=== PATIENT | female | born 1985 | race Caucasian/White ===

== ENCOUNTER 2017-06-12 17:35 | Inpatient (IN) | payer OTHER ==
[2017-06-12 17:56] VITALS: BMI 28.3
--- NOTE | 2017-06-12 20:24 | HP ---
COWS - Scale Resting Pulse: 1= [place] 81-100 Sweatin= Chills/Flushing Restless Observation: 3= Extraneous Movement Pupil Size: 0= Normal to Room Light Bone or Joint Aches: 2= Severe Diffuse Aches Runny Nose/ Eye Tearin= Runny Nose/Eyes GI Upset > 30mins: 2= Nausea/Diarrhea Tremor Observation: 2= Slight Tremor Visible Yawning Observation: 0= None Anxiety or Irritability: 2=Irritable/Anxious Goose Flesh Skin: 0=Smooth Skin COWS Score: 15 Admission ROS S - [facility] Chief Complaint: withdrawal sx Allergies/Adverse Reactions: Allergies Allergy/AdvReac Type Severity Reaction Status Date / Time Sulfa (Sulfonamide Allergy Mild Rash Verified 06/12/17 19:25 Antibiotics) History of Present Illness: 32 years old female with long history of oxy nicotine marijuana dependence has ovarian cysts, endometriosis, separate right shoulder, and depression anxiety is admitted to detox Exam Limitations: No Limitations - Ebola screening Have you traveled outside of the country in the last 21 days: No (N) Have you had contact with anyone from an Ebola affected area: No Have you been sick,other than usual withdrawal symptoms: No Do you have a fever: No - Review of Systems Constitutional: Changes in sleep, Weight Stable EENT: reports: No Symptoms Reported Respiratory: reports: No Symptoms reported Cardiac: reports: No Symptoms Reported GI: reports: Nausea, Poor Fluid Intake, Abdominal cramping : reports: No Symptoms Reported Musculoskeletal: reports: Back Pain, Joint Pain, Muscle Pain, Neck Pain Integumentary: reports: No Symptoms Reported Neuro: reports: Seizure (last episode 2011), Tremors Endocrine: reports: No Symptoms Reported Hematology: reports: No Symptoms Reported Psychiatric: reports: Judgement Intact, Orientated x3, Anxious, Depressed Other Systems: Reviewed and Negative Patient History - Patient Medical History Hx Anemia: No Hx Asthma: No Hx Chronic Obstructive Pulmonary Disease (COPD): No Hx Cancer: No Hx Cardiac Disorders: No Hx Congestive Heart Failure: No Hx Hypertension: No Hx Hypercholesterolemia: No Hx Pacemaker: No HX Cerebrovascular Accident: No Hx Seizures: No Hx Dementia: No Hx Diabetes: No Hx Gastrointestinal Disorders: Yes (IBS,hiatal hernia,hemorrhoids) Hx Liver Disease: No Hx Genitourinary Disorders: No Hx Sexually Transmitted Disorders: No Hx Renal Disease (ESRD): No Hx Thyroid Disease: No Hx Human Immunodeficiency Virus (HIV): No Hx Hepatitis C: No Hx Depression: Yes Hx Suicide Attempt: No Hx Bipolar Disorder: No Hx Schizophrenia: No - Patient Surgical History Past Surgical History: Yes Hx Neurologic Surgery: No Hx Cataract Extraction: No Hx Cardiac Surgery: No Hx Lung Surgery: No Hx Breast Surgery: No Hx Breast Biopsy: No Hx Abdominal Surgery: No Hx Appendectomy: No Hx Cholecystectomy: No Hx Genitourinary Surgery: No Hx Section: No Hx Orthopedic Surgery: No Hx Hysterectomy: No Other Surgical History: ENDOMETRIOSISx2 + ovarian cysts removedx2 02/2016 Anesthesia Reaction: No - PPD History Previous Implant?: Yes Documented Results: Negative w/proof Implanted On Prior R Admission?: Yes Date: 05/07/12 PPD to be Administered?: Yes - Reproductive History Patient is a Female of Child Bearing Age (11 -55 yrs old): Yes Last Menstrual Period: 05/22/17 Patient : No - Smoking Cessation Smoking history: Current every day smoker Have you smoked in the past 12 months: Yes Aproximately how many cigarettes per day: 20 If you are a former smoker, when did you quit?: Cigars Per Day: 0 Hx Chewing Tobacco Use: No Initiated information on smoking cessation: Yes 'Breaking Loose' booklet given: 06/12/17 - Substance & Tx. History Hx Alcohol Use: No Hx Substance Use: Yes Substance Use Type: Marijuana, Opiates Hx Substance Use Treatment: No - Substances Abused Oxycontin Route: Oral Frequency: Daily Amount used: 180mg Age of first use: 32 Date of Last Use: 06/12/17 Marijuana/Hashish Route: Smoking Frequency: Daily Amount used: 7 blunts Age of first use: 17 Date of Last Use: 06/12/17 Family Disease History - Family Disease History Family Disease History: Diabetes: Grandparent, [place]: Father, Respiratory: Mother Admission Physical Exam BHS - Vital Signs Vital Signs: Vital Signs - 24 hr 06/12/17 17:45 Temperature 97.9 F Pulse Rate 93 H Respiratory 18 Rate Blood Pressure 142/80 - Physical General Appearance: Yes: Appropriately Dressed, Mild Distress, Obese, Tremorous , Irritable, Sweating, Anxious HEENTM: Yes: Hearing grossly Normal, Normal ENT Inspection, Normocephalic, Normal Voice Respiratory: Yes: Chest Non-Tender, Lungs Clear, Normal Breath Sounds, No Respiratory Distress, No Accessory Muscle Use Neck: Yes: Supple, Trachea in good position Breast: Yes: Breasts Symetrical Cardiology: Yes: Regular Rhythm, S1, S2, Tachycardia Abdominal: Yes: Non Tender, Soft, Increased Bowel Sounds Genitourinary: Yes: Within Normal Limits Back: Yes: Normal Inspection Musculoskeletal: Yes: full range of Motion, Gait Steady, Back pain, Muscle Pain Extremities: Yes: Normal Inspection, Normal Range of Motion, Non-Tender, Tremors Neurological: Yes: Fully Oriented, Alert, Motor Strength 5/5, Normal Response, Depressed Affect Integumentary: Yes: Warm Lymphatic: Yes: Within Normal Limits - Diagnostic (1) Opioid dependence with withdrawal Current Visit: Yes Status: Acute (2) Nicotine dependence Current Visit: Yes Status: Acute Qualifiers: Nicotine product type: cigarettes Substance use status: in withdrawal Qualified Code(s): F17.213 - Nicotine dependence, cigarettes, with withdrawal (3) Anxious depression Current Visit: Yes Status: Suspected (4) Endometriosis Current Visit: Yes Status: Resolved (5) Ovarian cyst Current Visit: Yes Status: Resolved Qualifiers: Laterality: bilateral Qualified Code(s): N83.201 - Unspecified ovarian cyst, right side; N83.202 - Unspecified ovarian cyst, left side Cleared for Admission [facility] - Detox or Rehab [facility] Level of Care: Medically Managed Detox Regimen/Protocol: Methadone [facility] Breath Alcohol Content Breath Alcohol Content: 0 Urine Pregancy Test - Result Urine Test Results: Negative- NO Line Present Urine Drug Screen - Results Drug Screen Negative: No Urine Drug Screen Results: THC-Marijuana, OXY-Oxycodone
[2017-06-12] MEDS ORDERED: MAG HYDROX/AL HYDROX/SIMETH 30 ML UNIT-DOSE CUP PO PRN (20:27)
[2017-06-12] MEDS ORDERED: LOPERAMIDE HCL 2 MG CAPSULE PO PRN (20:27)
[2017-06-12] MEDS ORDERED: METHADONE HCL 10 MG TABLET (FOR DETOX USE ONLY) PO ONE ×2 (20:27→23:00)
[2017-06-12] MEDS ORDERED: ACETAMINOPHEN 325 MG TABLET (FP) PO PRN (20:27)
[2017-06-12] MEDS ORDERED: MAGNESIUM HYDROX 2400MG/30ML ORAL SUSPENSION 30 ML CUP PO PRN (20:27)
[2017-06-12] MEDS ORDERED: NICOTINE POLACRILEX 4 MG GUM BUC PRN (20:27)
[2017-06-12] MEDS ORDERED: MAGNESIUM CITRATE 300 ML BOTTLE PO PRN (20:27)
[2017-06-12] MEDS ORDERED: IBUPROFEN 400 MG TABLET (FP) PO PRN (20:27)
[2017-06-12] MEDS ORDERED: guaiFENesin/D-METHORPHAN HB 10 ML UNIT-DOSE CUPS PO PRN (20:27)
[2017-06-12] MEDS ORDERED: P-EPHED 60MG/TRIPROLIDI 2.5MG TABLET PO PRN (20:27)
[2017-06-12] MEDS ORDERED: diphenhydrAMINE HCL 50 MG CAPSULE PO PRN (20:27)
[2017-06-12] MEDS ORDERED: MENTHOL/PHENOL 1 EACH UD MM PRN (20:27)
[2017-06-12] MEDS: diazePAM 5 MG TABLET PO PRN (21:06)
[2017-06-12 21:55] LABS: URINE APPEARANCE CLEAR; URINE BILIRUBIN NEGATIVE (NEGATIVE); URINE BLOOD NEGATIVE (NEGATIVE); URINE COLOR LT. YELLOW; URINE GLUCOSE (UA) NEGATIVE (NEGATIVE); URINE KETONE NEGATIVE (NEGATIVE); URINE LEUK ESTERASE NEGATIVE (NEGATIVE); URINE NITRITE NEGATIVE (NEGATIVE); URINE PROTEIN NEGATIVE (NEGATIVE); URINE UROBILINOGEN 0.2 mg/dL (0.2-1.0)
[2017-06-12] MEDS: THIAMINE HCL 100 MG TABLET (FP) PO SCH (22:17)
[2017-06-13] MEDS: diazePAM 5 MG TABLET PO PRN ×5 (01:13→22:02)
--- NOTE | 2017-06-13 09:50 | EKG ---
Test Reason : Blood Pressure : / mmHG Vent. Rate : 083 BPM Atrial Rate : 083 BPM P-R Int : 142 ms QRS Dur : 086 ms QT Int : 382 ms P-R-T Axes : 056 064 056 degrees QTc Int : 448 ms NORMAL SINUS RHYTHM NORMAL ECG Confirmed by MD ENE, LB (2012) on 06/13/2017 9:49:44 AM Referred By: Confirmed By:LB LUQUE MD
[2017-06-13] MEDS ORDERED: METHADONE HCL 10 MG TABLET (FOR DETOX USE ONLY) PO ONE (10:00)
[2017-06-13] MEDS: PRENATAL VITAMINS W/ FOLIC ACID TABLET (FP) PO SCH (10:15)
[2017-06-13] MEDS: NICOTINE 21 MG/24 HOURS TOPICAL PATCH TD SCH (10:19)
[2017-06-13 10:35] LABS: MCH 31.6 pg (25.7-33.7); MEAN CELL VOLUME 93.2 fl (80-96); MEAN PLT VOLUME 9.2 fl (7.5-11.1); PLATELET COUNT 289 K/MM3 (134-434); RDW 13.2 % (11.6-15.6)
[2017-06-13 11:24] LABS: ALBUMIN 3.5 g/dl (3.4-5.0); ANION GAP 5 (8-16); BILIRUBIN,TOTAL 0.4 mg/dL (0.2-1.0); CO2 28 mmol/L (21-32); GLUCOSE,RANDOM 84 mg/dL (74-106); SGOT/AST 10 U/L (15-37); TOT PROT 6.2 g/dl (6.4-8.2)
[2017-06-13 11:32] LABS: ALK PHOS 50 U/L (45-117); CALCIUM 9.4 mg/dL (8.5-10.1); CREATININE 0.6 mg/dL (0.55-1.02); SGPT/ALT 17 U/L (12-78)
--- NOTE | 2017-06-13 12:17 | PN ---
BHS COWS - Scale Resting Pulse: 0= [place] 80 or Below Sweatin= Chills/Flushing Restless Observation: 3= Extraneous Movement Pupil Size: 1= Pupils >than Normal Bone or Joint Aches: 2= Severe Diffuse Aches Runny Nose/ Eye Tearin= Runny Nose/Eyes GI Upset > 30mins: 3= Vomiting/Diarrhea Tremor Observation of Outstretched Hands: 2= Slight Tremor Visible Yawning Observation: 1= 1-2x During Session Anxiety or Irritability: 2=Irritable/Anxious Goose Flesh Skin: 0=Smooth Skin COWS Score: 17 BHS Progress Note (SOAP) Subjective: alert,irritable,anxious,interrupted sleep,tremor,pain in the body and back Objective: 06/13/17 12:15 Vital Signs Temperature 98.4 F 06/13/17 10:54 Pulse Rate 62 06/13/17 10:54 Respiratory Rate 18 06/13/17 10:54 Blood Pressure 110/69 06/13/17 10:54 O2 Sat by Pulse Oximetry (%) ekg nsr,normal ecg Laboratory Last Values WBC 11.0 K/mm3 (4.0-10.0) H D 06/13/17 08:00 RBC 4.30 M/mm3 (3.60-5.2) 06/13/17 08:00 Hgb 13.6 GM/dL (10.7-15.3) 06/13/17 08:00 Hct 40.1 % (32.4-45.2) 06/13/17 08:00 MCV 93.2 fl (80-96) 06/13/17 08:00 MCH 31.6 pg (25.7-33.7) 06/13/17 08:00 MCHC 34.0 g/dl (32.0-36.0) 06/13/17 08:00 RDW 13.2 % (11.6-15.6) 06/13/17 08:00 Plt Count 289 K/MM3 (134-434) 06/13/17 08:00 MPV 9.2 fl (7.5-11.1) 06/13/17 08:00 Sodium 140 mmol/L (136-145) 06/13/17 08:00 Potassium 4.5 mmol/L (3.5-5.1) 06/13/17 08:00 Chloride 107 mmol/L (98-107) 06/13/17 08:00 Carbon Dioxide 28 mmol/L (21-32) 06/13/17 08:00 Anion Gap 5 (8-16) L 06/13/17 08:00 BUN 14 mg/dL (7-18) 06/13/17 08:00 Creatinine 0.6 mg/dL (0.55-1.02) 06/13/17 08:00 Creat Clearance w eGFR > 60 (>60) 06/13/17 08:00 Random Glucose 84 mg/dL (74-106) D 06/13/17 08:00 Calcium 9.4 mg/dL (8.5-10.1) 06/13/17 08:00 Total Bilirubin 0.4 mg/dL (0.2-1.0) D 06/13/17 08:00 AST 10 U/L (15-37) L 06/13/17 08:00 ALT 17 U/L (12-78) 06/13/17 08:00 Alkaline Phosphatase 50 U/L (45-117) 06/13/17 08:00 Total Protein 6.2 g/dl (6.4-8.2) L 06/13/17 08:00 Albumin 3.5 g/dl (3.4-5.0) 06/13/17 08:00 Urine Color Lt. yellow 06/12/17 21:46 Urine Appearance Clear 06/12/17 21:46 Urine pH 5.0 (5.0-8.0) 06/12/17 21:46 Ur Specific [place] >= 1.030 (1.005-1.025) H 06/12/17 21:46 Urine Protein Negative (NEGATIVE) 06/12/17 21:46 Urine Glucose (UA) Negative (NEGATIVE) 06/12/17 21:46 Urine Ketones Negative (NEGATIVE) 06/12/17 21:46 Urine Blood Negative (NEGATIVE) 06/12/17 21:46 Urine Nitrite Negative (NEGATIVE) 06/12/17 21:46 Urine Bilirubin Negative (NEGATIVE) 06/12/17 21:46 Urine Urobilinogen 0.2 mg/dL (0.2-1.0) 06/12/17 21:46 Assessment: 06/13/17 12:16 withdrawal symptom Plan: contue detox,encourage oral fluid
[2017-06-13 12:45] LABS: HIV 1 & 2 AB NEGATIVE; HIV 1 AGp24 NEGATIVE
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
[2017-06-13] MEDS ORDERED: PATIENT'S OWN MEDICATION (NON-FORMULARY) (Escitalopram Oxalate [Lexapro -] 5 MG) PO SCH (15:15)
[2017-06-13] MEDS: ESCITALOPRAM OXALATE 10 MG TABLET (FP) PO SCH (17:46)
[2017-06-13] MEDS: ZOLPIDEM TARTRATE 5 MG TABLET PO PRN (22:01)
[2017-06-13] MEDS: THIAMINE HCL 100 MG TABLET (FP) PO SCH (22:01)
--- NOTE | 2017-06-14 08:53 | PN ---
S COWS - Scale Resting Pulse: 0= [place] 80 or Below Sweatin= Chills/Flushing Restless Observation: 3= Extraneous Movement Pupil Size: 1= Pupils >than Normal Bone or Joint Aches: 2= Severe Diffuse Aches Runny Nose/ Eye Tearin= Runny Nose/Eyes GI Upset > 30mins: 2= Nausea/Diarrhea Tremor Observation of Outstretched Hands: 2= Slight Tremor Visible Yawning Observation: 1= 1-2x During Session Anxiety or Irritability: 2=Irritable/Anxious Goose Flesh Skin: 0=Smooth Skin COWS Score: 16 S Progress Note (SOAP) Subjective: ALERT,IRRITABLE,ANXIOUS,INTERRUPTED SLEEP,TREMOR,PAIN IN THE BODY AND BACK Objective: 06/14/17 08:52 Vital Signs Temperature 96.1 F L 06/14/17 06:00 Pulse Rate 60 06/14/17 06:00 Respiratory Rate 18 06/14/17 06:00 Blood Pressure 95/56 06/14/17 06:00 O2 Sat by Pulse Oximetry (%) Laboratory Last Values WBC 11.0 K/mm3 (4.0-10.0) H D 06/13/17 08:00 RBC 4.30 M/mm3 (3.60-5.2) 06/13/17 08:00 Hgb 13.6 GM/dL (10.7-15.3) 06/13/17 08:00 Hct 40.1 % (32.4-45.2) 06/13/17 08:00 MCV 93.2 fl (80-96) 06/13/17 08:00 MCH 31.6 pg (25.7-33.7) 06/13/17 08:00 MCHC 34.0 g/dl (32.0-36.0) 06/13/17 08:00 RDW 13.2 % (11.6-15.6) 06/13/17 08:00 Plt Count 289 K/MM3 (134-434) 06/13/17 08:00 MPV 9.2 fl (7.5-11.1) 06/13/17 08:00 Sodium 140 mmol/L (136-145) 06/13/17 08:00 Potassium 4.5 mmol/L (3.5-5.1) 06/13/17 08:00 Chloride 107 mmol/L (98-107) 06/13/17 08:00 Carbon Dioxide 28 mmol/L (21-32) 06/13/17 08:00 Anion Gap 5 (8-16) L 06/13/17 08:00 BUN 14 mg/dL (7-18) 06/13/17 08:00 Creatinine 0.6 mg/dL (0.55-1.02) 06/13/17 08:00 Creat Clearance w eGFR > 60 (>60) 06/13/17 08:00 Random Glucose 84 mg/dL (74-106) D 06/13/17 08:00 Calcium 9.4 mg/dL (8.5-10.1) 06/13/17 08:00 Total Bilirubin 0.4 mg/dL (0.2-1.0) D 06/13/17 08:00 AST 10 U/L (15-37) L 06/13/17 08:00 ALT 17 U/L (12-78) 06/13/17 08:00 Alkaline Phosphatase 50 U/L (45-117) 06/13/17 08:00 Total Protein 6.2 g/dl (6.4-8.2) L 06/13/17 08:00 Albumin 3.5 g/dl (3.4-5.0) 06/13/17 08:00 Urine Color Lt. yellow 06/12/17 21:46 Urine Appearance Clear 06/12/17 21:46 Urine pH 5.0 (5.0-8.0) 06/12/17 21:46 Ur Specific [place] >= 1.030 (1.005-1.025) H 06/12/17 21:46 Urine Protein Negative (NEGATIVE) 06/12/17 21:46 Urine Glucose (UA) Negative (NEGATIVE) 06/12/17 21:46 Urine Ketones Negative (NEGATIVE) 06/12/17 21:46 Urine Blood Negative (NEGATIVE) 06/12/17 21:46 Urine Nitrite Negative (NEGATIVE) 06/12/17 21:46 Urine Bilirubin Negative (NEGATIVE) 06/12/17 21:46 Urine Urobilinogen 0.2 mg/dL (0.2-1.0) 06/12/17 21:46 RPR Titer Nonreactive (NONREACTIVE) 06/13/17 08:00 Hepatitis C Antibody <0.1 s/co ratio (0.0-0.9) 06/13/17 08:00 HIV 1&2 Antibody Screen Negative 06/13/17 08:00 HIV P24 Antigen Negative 06/13/17 08:00 Assessment: 06/14/17 08:52 WITHDRAWAL SYMPTOM Plan: CONTINUE DETOX
[2017-06-14] MEDS ORDERED: METHADONE HCL 5 MG TABLET (FOR DETOX USE ONLY) PO ONE (10:00)
[2017-06-14] MEDS: PRENATAL VITAMINS W/ FOLIC ACID TABLET (FP) PO SCH (10:13)
[2017-06-14] MEDS: ESCITALOPRAM OXALATE 10 MG TABLET (FP) PO SCH (10:13)
[2017-06-14] MEDS: NICOTINE 21 MG/24 HOURS TOPICAL PATCH TD SCH (10:14)
[2017-06-14] MEDS: diazePAM 5 MG TABLET PO PRN ×4 (10:16→22:15)
[2017-06-14] MEDS: CYCLOBENZAPRINE HCL 10 MG TABLET (FP) PO PRN (12:21)
[2017-06-14] MEDS: IBUPROFEN 600 MG TABLET (FP) PO PRN ×2 (12:21→18:18)
[2017-06-14] MEDS: ZOLPIDEM TARTRATE 5 MG TABLET PO PRN (22:16)
[2017-06-14] MEDS: THIAMINE HCL 100 MG TABLET (FP) PO SCH (22:17)
[2017-06-15] MEDS: diazePAM 5 MG TABLET PO PRN ×4 (05:59→21:12)
[2017-06-15] MEDS: IBUPROFEN 600 MG TABLET (FP) PO PRN ×2 (05:59→14:19)
--- NOTE | 2017-06-15 09:42 | PN ---
BHS Progress Note (SOAP) Subjective: ALERT,IRRITABLE,ANXIOUS,INTERRUPTED SLEEP,PAIN IN THE BODY AND BACK Objective: 06/15/17 09:41 Vital Signs Temperature 97.9 F 06/15/17 06:33 Pulse Rate 68 06/15/17 06:33 Respiratory Rate 18 06/15/17 06:33 Blood Pressure 108/55 06/15/17 06:33 O2 Sat by Pulse Oximetry (%) Assessment: 06/15/17 09:41 WITHDRAWAL SYMPTOM Plan: CONTINUE DETOX
[2017-06-15] MEDS ORDERED: METHADONE HCL 5 MG TABLET (FOR DETOX USE ONLY) PO ONE (10:00)
[2017-06-15] MEDS: PRENATAL VITAMINS W/ FOLIC ACID TABLET (FP) PO SCH (10:09)
[2017-06-15] MEDS: ESCITALOPRAM OXALATE 10 MG TABLET (FP) PO SCH (10:09)
[2017-06-15] MEDS: NICOTINE 21 MG/24 HOURS TOPICAL PATCH TD SCH (10:10)
[2017-06-15] MEDS: CYCLOBENZAPRINE HCL 10 MG TABLET (FP) PO PRN ×2 (10:11→22:10)
[2017-06-15] MEDS ORDERED: cloNIDine HCL 0.1 MG TABLET PO ONE (22:00)
[2017-06-15] MEDS: ZOLPIDEM TARTRATE 5 MG TABLET PO PRN (22:10)
[2017-06-15] MEDS: THIAMINE HCL 100 MG TABLET (FP) PO SCH (22:55)
--- NOTE | 2017-06-16 09:40 | PN ---
BHS Progress Note (SOAP) Subjective: nausea, sweats, interrupted sleep, anxiety, tremors Objective: 06/16/17 09:39 Vital Signs - 8 hr 06/16/17 06/16/17 03:30 06:37 Temperature 98.1 F Pulse Rate 65 Respiratory 18 18 Rate Blood Pressure 101/50 Laboratory Tests 06/12/17 06/13/17 06/13/17 21:46 08:00 08:00 WBC RBC Hgb Hct MCV MCH MCHC RDW Plt Count MPV Sodium Potassium Chloride Carbon Dioxide Anion Gap BUN Creatinine Creat Clearance w eGFR Random Glucose Calcium Total Bilirubin AST ALT Alkaline Phosphatase Total Protein Albumin Urine Color Lt. yellow Urine Appearance Clear Urine pH 5.0 Ur Specific [place] >= 1.030 H Urine Protein Negative Urine Glucose (UA) Negative Urine Ketones Negative Urine Blood Negative Urine Nitrite Negative Urine Bilirubin Negative Urine Urobilinogen 0.2 RPR Titer Hepatitis C Antibody <0.1 HIV 1&2 Antibody Screen Negative HIV P24 Antigen Negative 06/13/17 06/13/17 06/13/17 08:00 08:00 08:00 WBC 11.0 H D RBC 4.30 Hgb 13.6 Hct 40.1 MCV 93.2 MCH 31.6 MCHC 34.0 RDW 13.2 Plt Count 289 MPV 9.2 Sodium 140 Potassium 4.5 Chloride 107 Carbon Dioxide 28 Anion Gap 5 L BUN 14 Creatinine 0.6 Creat Clearance w eGFR > 60 Random Glucose 84 D Calcium 9.4 Total Bilirubin 0.4 D AST 10 L ALT 17 Alkaline Phosphatase 50 Total Protein 6.2 L Albumin 3.5 Urine Color Urine Appearance Urine pH Ur Specific [place] Urine Protein Urine Glucose (UA) Urine Ketones Urine Blood Urine Nitrite Urine Bilirubin Urine Urobilinogen RPR Titer Nonreactive Hepatitis C Antibody HIV 1&2 Antibody Screen HIV P24 Antigen Assessment: 06/16/17 09:39 withdrawal sx Plan: cont detox, fluids, symptomatic relief, pain medications to treat PID/ endometriosis, shoulder pain
[2017-06-16] MEDS ORDERED: METHADONE HCL 10 MG TABLET (FOR DETOX USE ONLY) PO ONE (10:00)
[2017-06-16] MEDS ORDERED: NAPROXEN 500 MG TABLET (FP) PO SCH (10:00)
[2017-06-16] MEDS: ESCITALOPRAM OXALATE 10 MG TABLET (FP) PO SCH (10:21)
[2017-06-16] MEDS: PRENATAL VITAMINS W/ FOLIC ACID TABLET (FP) PO SCH (10:22)
[2017-06-16] MEDS: NICOTINE 21 MG/24 HOURS TOPICAL PATCH TD SCH (10:22)
[2017-06-16] MEDS: PANTOPRAZOLE 40 MG TABLET (FP) PO SCH (10:25)
[2017-06-16] MEDS: hydrOXYzine PAMOATE 50 MG CAPSULE (FP) PO PRN ×2 (10:27→14:51)
[2017-06-16] MEDS: CYCLOBENZAPRINE HCL 10 MG TABLET (FP) PO PRN (10:27)
[2017-06-16] MEDS: cloNIDine HCL 0.1 MG TABLET PO SCH ×2 (11:20→22:17)
[2017-06-16] MEDS ORDERED: LIDOCAINE 5% TOPICAL PATCH TP ONE (12:29)
[2017-06-16] MEDS: IBUPROFEN 400 MG TABLET (FP) PO PRN (12:58)
[2017-06-16] MEDS: GABAPENTIN 100 MG CAPSULE (FP) PO SCH ×2 (13:36→22:14)
[2017-06-16] MEDS ORDERED: LIDOCAINE PATCH REMOVAL MC SCH (22:00)
[2017-06-16] MEDS: ZOLPIDEM TARTRATE 5 MG TABLET PO PRN (22:14)
[2017-06-16] MEDS: THIAMINE HCL 100 MG TABLET (FP) PO SCH (22:15)
[2017-06-17] MEDS: GABAPENTIN 100 MG CAPSULE (FP) PO SCH (05:32)
[2017-06-17] MEDS ORDERED: METHADONE HCL 5 MG TABLET (FOR DETOX USE ONLY) PO ONE (06:00)
[2017-06-17 06:15] VITALS: PULSE 70
--- NOTE | 2017-06-17 08:08 | DS ---
[facility] Detox Discharge Summary Admission Date: 06/12/17 Discharge Date: 06/17/17 - History Present History: Opioid Dependence Additional Comments: FOLLLOW UP WITH AFTER [facility] PROGRAM ARRANGEMENT Pertinent Past History: NICOTINE DEPENDENCE ENDOMETRIOSIS OVARIAN CYST ANXIETY AND DEPRESSION - Physical Exam Results Vital Signs: Vital Signs Temperature 97.9 F 06/17/17 06:13 Pulse Rate 70 06/17/17 06:13 Respiratory Rate 18 06/17/17 06:13 Blood Pressure 110/53 06/17/17 06:13 O2 Sat by Pulse Oximetry (%) Pertinent Admission Physical Exam Findings: WITHDRAWAL SYMPTOM - Treatment Hospital Course: Detox Protocol Followed, Detoxed Safely, Responded well, Discharged Condition Good Patient has Accepted a Rehab Referral to: DECLINED - Medication Discharge Medications: Ambulatory Orders Escitalopram Oxalate [Lexapro -] 5 mg PO DAILY 06/12/17 Oxycodone HCl [Roxicodone -] 15 mg PO QID 06/12/17 - AMA Did Patient Leave Against Medical Advice: No
[2017-06-17] MEDS: IBUPROFEN 400 MG TABLET (FP) PO PRN (09:16)
[2017-06-17] MEDS: ESCITALOPRAM OXALATE 10 MG TABLET (FP) PO SCH (09:18)
[2017-06-17] MEDS: cloNIDine HCL 0.1 MG TABLET PO SCH (09:19)
[2017-06-17] MEDS: PANTOPRAZOLE 40 MG TABLET (FP) PO SCH (09:19)
[2017-06-17] MEDS: PRENATAL VITAMINS W/ FOLIC ACID TABLET (FP) PO SCH (09:20)
[2017-06-17] MEDS ORDERED: LIDOCAINE 5% TOPICAL PATCH TP SCH (10:00)
[2017-06-17 10:32] VITALS: BP 132/64; TEMP 97.8
== END 2017-06-17 10:00 | disposition home or self-care (01) | DRG 773 ==
LOC: YASAS 17:35 → Y6N 20:34
PROVIDERS: ADMIT Internal Medicine; ATTEND Internal Medicine
PROC: HZ2ZZZZ Detoxification Services for Substance Abuse Treatment (ICD-10-PCS; principal; 2017-06-12)
DX: F11.23 Opioid dependence with withdrawal (principal); F17.213 Nicotine dependence, cigarettes, with withdrawal; F41.9 Anxiety disorder, unspecified; F43.10 Post-traumatic stress disorder, unspecified; K58.9 Irritable bowel syndrome, unspecified; K44.9 Diaphragmatic hernia without obstruction or gangrene; K64.8 Other hemorrhoids; E66.9 Obesity, unspecified; Z68.28 Body mass index [BMI] 28.0-28.9, adult; Z88.2 Allergy status to sulfonamides; Z87.42 Personal history of other diseases of the female genital tract
CPT/HCPCS: 36415; 80053; 81003; 85027; 86593; 86803; 87389; 93005; 93010

== ENCOUNTER 2018-05-20 10:25 | Day surgery (SDC) | payer OTHER ==
[2018-05-19 13:56] VITALS: BMI 35.9
--- NOTE | 2018-05-20 10:58 | PROC ---
Endoscopy Procedure Endoscopy procedure completed. Please see scanned procedure report.
[2018-05-20 11:08] VITALS: TEMP 98
[2018-05-20 13:21] VITALS: BP 113/61; PULSE 70
--- NOTE | 2018-05-21 11:04 | PATH ---
Surgical Pathology Report Patient Name: ANGELA ROMANO [facility]. Rec. #: [id number] /Age/Gender: 1985 (Age: 33) / F Account: [id number] Location: U-ENDOSCOPY Taken: 05/20/2018 Received: 05/20/2018 Reported: 05/21/2018 Physicians: Antonio Chavarria M.D. Specimen(s) Received A: BX 2ND PORTION DUODENUM B: BX ANTRUM AND BODY Clinical History Gastrointestinal hemorrhage unspecified Postoperative diagnosis: Gastritis, hemorrhoids Final Diagnosis A. DUODENUM, SECOND PORTION, BIOPSY: DUODENAL MUCOSA WITH NO PATHOLOGIC CHANGES. NO HISTOLOGIC EVIDENCE OF GLUTEN SENSITIVE ENTEROPATHY (CELIAC SPRUE) IDENTIFIED. B. STOMACH, ANTRUM AND BODY, BIOPSY: GASTRIC ANTRAL AND FUNDIC MUCOSA WITH NO SIGNIFICANT PATHOLOGIC CHANGES. IMMUNOSTAIN FOR H. PYLORI IS NEGATIVE. Electronically Signed Moisés Gaspar M.D. Gross Description A. Received in formalin, labeled "biopsy second portion of duodenum" are 2 lance, irregular portions of soft tissue averaging 0.3 cm. in greatest dimension. The specimens are submitted in toto in one cassette. B. Received in formalin, labeled "biopsy antrum and body" are 2 lance, irregular portions of soft tissue measuring 0.3 and 0.5 cm. in greatest dimension. The specimens are submitted in toto in one cassette. 05/20/201805/20/2018
== END 2018-05-20 13:22 | disposition home or self-care (01) ==
LOC: JASU-ENDO 10:25
PROVIDERS: ATTEND Internal Medicine Gastroenterology
PROC: 0DB98ZX Excision of Duodenum, Via Natural or Artificial Opening Endoscopic, Diagnostic (ICD-10-PCS; 2018-05-20)
PROC: 0DB68ZX Excision of Stomach, Via Natural or Artificial Opening Endoscopic, Diagnostic (ICD-10-PCS; 2018-05-20)
PROC: 0DJD8ZZ Inspection of Lower Intestinal Tract, Via Natural or Artificial Opening Endoscopic (ICD-10-PCS; principal; 2018-05-20 11:30)
DX: K92.1 Melena (principal); K64.8 Other hemorrhoids; R12 Heartburn; K29.70 Gastritis, unspecified, without bleeding
CPT/HCPCS: 84703; 88305-TC; 88342-TC

== ENCOUNTER 2020-09-28 04:46 | Day surgery (SDC) | payer OTHER ==
[2020-09-25 16:10] VITALS: BMI 29.2
[2020-09-28] MEDS ORDERED: LIDOCAINE HCL/PF 2% SDV 5ML VIAL ONE (12:28)
[2020-09-28] MEDS ORDERED: MIDAZOLAM HCL 2 MG/2 ML SINGLE DOSE VIAL ONE (12:28)
[2020-09-28] MEDS ORDERED: PROPOFOL 20 ML ONE ×2 (12:28→13:25)
[2020-09-28] MEDS ORDERED: ceFAZolin SODIUM 1 GM VIAL IVPB ONE (13:20)
[2020-09-28] MEDS ORDERED: ceFAZolin SODIUM 1 GM VIAL ONE (13:24)
[2020-09-28] MEDS ORDERED: DEXAMETHASONE SOD PHOSPHATE 4 MG/1 ML VIAL ONE (13:32)
[2020-09-28] MEDS ORDERED: ACETAMINOPHEN 325 MG TABLET (FP) PO PRN (14:07)
[2020-09-28] MEDS ORDERED: IBUPROFEN 400 MG TABLET (FP) PO PRN (14:07)
[2020-09-28] MEDS ORDERED: oxyCODONE HCL 5 MG TABLET PO PRN (14:07)
[2020-09-28] MEDS ORDERED: LACTATED RINGERS SOLUTION 1,000 ML IV SCH (14:15)
[2020-09-28 14:53] VITALS: TEMP 98.1
[2020-09-28 18:30] VITALS: BP 90/50; PULSE 78
== END 2020-09-28 15:45 | disposition home or self-care (01) ==
LOC: JASU-SURG 04:46
PROVIDERS: ATTEND Obstetrics & Gynecology
PROC: 0UVC7ZZ Restriction of Cervix, Via Natural or Artificial Opening (ICD-10-PCS; principal; 2020-09-28 14:00)
DX: O34.31 Maternal care for cervical incompetence, first trimester (principal); Z3A.17 17 weeks gestation of pregnancy
CPT/HCPCS: 94760

== ENCOUNTER 2021-02-22 07:55 | Inpatient (IN) | payer OTHER ==
[2021-02-22] MEDS ORDERED: AMPICILLIN SODIUM 2 GM VIAL ONE (08:54)
[2021-02-22] MEDS ORDERED: AMPICILLIN - 2 GM in SODIUM CHLORIDE 100 ML IVPB ONE (09:00)
[2021-02-22 09:04] LABS: BASO % 0.4 % (0-2.0); EOS % 1.4 % (0-4.5); HEMATOCRIT 32.6 % (32.4-45.2); HEMOGLOBIN 11.4 GM/dL (10.7-15.3); LYMPH % 10.6 % (8-40); MCH 33.7 pg (25.7-33.7); MCHC 34.9 g/dl (32.0-36.0); MEAN CELL VOLUME 96.7 fl (80-96); MEAN PLT VOLUME 8.8 fl (7.5-11.1); MONO % 6.6 % (3.8-10.2); PLATELET COUNT 281 K/MM3 (134-434); RBC 3.37 M/mm3 (3.60-5.2); RDW 12.4 % (11.6-15.6); WHITE BLOOD COUNT 17.7 K/mm3 (4.0-10.0)
[2021-02-22 09:10] LABS: INR 0.91 (0.83-1.09)
[2021-02-22 09:12] LABS: ACTIVATED PTT 25.1 SECONDS (25.2-36.5)
[2021-02-22 09:26] VITALS: BMI 30.6
[2021-02-22 09:48] LABS: BLOOD UREA NITROGEN 6.3 mg/dL (7-18)
[2021-02-22 09:50] LABS: CREATININE 0.4 mg/dL (0.55-1.3)
[2021-02-22 10:06] LABS: CALCIUM 8.3 mg/dL (8.5-10.1)
[2021-02-22 10:28] LABS: OPIATES, URI NEGATIVE ng/ml (CUTOFF=300)
[2021-02-22] MEDS ORDERED: OXYTOCIN 30 UNITS in 0.9% NS 30 UNIT/500 ML INFUS.BAG IVPB ONE (10:30)
[2021-02-22 10:31] LABS: METHADONE, UR NEGATIVE ng/ml (CUTOFF=300); URINE BARBITURATES NEGATIVE ng/ml (CUTOFF=200); URINE BENZODIAZEPINES NEGATIVE ng/ml (CUTOFF=200)
[2021-02-22 10:32] LABS: PHENCYCLIDINE,URINE NEGATIVE ng/ml (CUTOFF=25)
[2021-02-22] MEDS: OXYTOCIN 30 UNITS in 0.9% NS 30 UNIT/500 ML INFUS.BAG IVPB SCH (10:35)
[2021-02-22 10:38] LABS: COCAINE, UR NEGATIVE ng/ml (CUTOFF=300); URINE AMPHETAMINES NEGATIVE ng/ml (CUTOFF=500)
[2021-02-22] MEDS ORDERED: BUPIVACAINE HCL/PF 0.25% (2.5MG/ML) 10 ML VIAL ONE (10:54)
[2021-02-22] MEDS ORDERED: FENTANYL/BUPIVACAINE/NS/PF - PCEA - 50 ML DISP.SYRIN EP ONE ×3 (10:56→16:41)
[2021-02-22] MEDS ORDERED: PCA PUMP NR ONE (10:56)
[2021-02-22 11:02] LABS: SYPHILIS W/ RPR CONF NON-REACTIVE (NONREACTIVE)
[2021-02-22] MEDS ORDERED: NALOXONE HCL 0.4 MG/ML VIAL IVPUSH PRN (11:04)
[2021-02-22] MEDS ORDERED: ELECTROLYTE-148 SOLN 1,000 ML IV SCH (11:15)
[2021-02-22] MEDS: FENTANYL/BUPIVACAINE/NS/PF - PCEA - 50 ML DISP.SYRIN EP SCH (11:20)
[2021-02-22 11:31] LABS: HIV INTERPRETATION NEGATIVE (NEGATIVE)
[2021-02-22] MEDS: AMPICILLIN - 1 GM in SODIUM CHLORIDE 100 ML IVPB SCH ×3 (12:30→19:13)
[2021-02-22] MEDS ORDERED: AMPICILLIN SODIUM 1 GM VIAL ONE ×2 (12:38→16:25)
[2021-02-22 12:40] LABS: POC NITRAZINE POS
[2021-02-22] MEDS ORDERED: ACETAMINOPHEN 325 MG TABLET (FP) ONE (16:25)
[2021-02-22] MEDS: ACETAMINOPHEN 325 MG TABLET (FP) PO PRN (17:15)
[2021-02-22] MEDS ORDERED: OXYTOCIN 20 UNITS in 0.9% NS 20 UNIT/1,000 ML INFUS.BAG IV ONE (17:44)
[2021-02-22] MEDS ORDERED: LIDOCAINE HCL 1% PRESERVATIVE FREE - 30ML VIAL ONE (17:55)
[2021-02-22] MEDS ORDERED: BENZOCAINE 28 GM HEMORRHOIDAL OINTMENT TP PRN (18:24)
[2021-02-22] MEDS ORDERED: METHYLERGONOVINE MALEATE 0.2 MG/1 ML AMP IM PRN (18:24)
[2021-02-22] MEDS ORDERED: BISACODYL 10 MG SUPP.RECT RC PRN (18:24)
[2021-02-22] MEDS ORDERED: BENZOCAINE 20% 57 GM BOTTLE TP PRN (18:24)
[2021-02-22] MEDS ORDERED: WITCH HAZEL 50% (TUCKS) 40 PAD/JAR PAD TP PRN (18:24)
[2021-02-22] MEDS ORDERED: OXYTOCIN 20 UNITS in 0.9% NS 20 UNIT/1,000 ML INFUS.BAG IV SCH (18:30)
[2021-02-22] MEDS ORDERED: BUPRENORPHINE/NALOXONE 8 MG/2 MG FILM (DETOX) SL SCH (18:30)
[2021-02-22] MEDS: IBUPROFEN 600 MG TABLET (FP) PO PRN (20:48)
[2021-02-23] MEDS: ACETAMINOPHEN 325 MG TABLET (FP) PO PRN ×4 (06:09→21:59)
[2021-02-23] MEDS: IBUPROFEN 600 MG TABLET (FP) PO PRN ×4 (06:09→21:59)
[2021-02-23] MEDS: BUPRENORPHINE HCL 8 MG TAB.SUBL SL SCH ×4 (06:09→23:21)
[2021-02-23 07:17] LABS: BASO % 0.4 % (0-2.0); EOS % 1.2 % (0-4.5); HEMATOCRIT 32.7 % (32.4-45.2); HEMOGLOBIN 11.5 GM/dL (10.7-15.3); LYMPH % 14.2 % (8-40); MCHC 35.1 g/dl (32.0-36.0); MEAN CELL VOLUME 96.9 fl (80-96); MEAN PLT VOLUME 8.8 fl (7.5-11.1); MONO % 7.4 % (3.8-10.2); NEUT % 76.8 % (42.8-82.8); PLATELET COUNT 298 K/MM3 (134-434); RBC 3.37 M/mm3 (3.60-5.2); RDW 12.7 % (11.6-15.6); WHITE BLOOD COUNT 19.8 K/mm3 (4.0-10.0)
[2021-02-23] MEDS: PRENATAL VITAMINS W/ FOLIC ACID TABLET (FP) PO SCH (10:57)
[2021-02-23] MEDS: FENTANYL/BUPIVACAINE/NS/PF - PCEA - 50 ML DISP.SYRIN EP SCH (11:02)
[2021-02-23] MEDS: OXYTOCIN 30 UNITS in 0.9% NS 30 UNIT/500 ML INFUS.BAG IVPB SCH (12:20)
[2021-02-23 21:20] VITALS: PULSE 63
[2021-02-23] MEDS ORDERED: SENNOSIDES/DOCUSATE COMBO (SENNA PLUS) TABLET (UD) PO PRN (22:00)
[2021-02-24] MEDS: BUPRENORPHINE HCL 8 MG TAB.SUBL SL SCH ×2 (06:06→12:07)
[2021-02-24] MEDS: IBUPROFEN 600 MG TABLET (FP) PO PRN ×2 (06:06→12:15)
[2021-02-24] MEDS: ACETAMINOPHEN 325 MG TABLET (FP) PO PRN ×2 (08:50→12:15)
[2021-02-24 09:42] VITALS: BP 114/73; TEMP 98.1
[2021-02-24] MEDS: PRENATAL VITAMINS W/ FOLIC ACID TABLET (FP) PO SCH (10:10)
== END 2021-02-24 13:45 | disposition home or self-care (01) | DRG 560 ==
LOC: JLDR 07:55 → J3W 20:42
PROVIDERS: ADMIT Obstetrics & Gynecology; ATTEND Obstetrics & Gynecology
PROC: 10E0XZZ Delivery of Products of Conception, External Approach (ICD-10-PCS; principal; 2021-02-22)
DX: O42.02 Full-term premature rupture of membranes, onset of labor within 24 hours of rupture (principal); O32.6XX0 Maternal care for compound presentation, not applicable or unspecified; Z3A.38 38 weeks gestation of pregnancy; Z37.0 Single live birth; Z88.2 Allergy status to sulfonamides
CPT/HCPCS: 36415; 59409; 80048; 80307; 83986-QW; 85025; 85610; 85730; 86780; 86850; 86900; 86901; 87389; C9803; U0003; U0005

== ENCOUNTER 2022-06-09 21:16 | Emergency (ER) | payer OTHER ==
[2022-06-09] MEDS ORDERED: TETRACAINE 0.5% OPHTH SOLN 2 ML BOTTLE ONE (21:20)
[2022-06-09] MEDS ORDERED: FLUORESCEIN NA 1 EA STRIP ONE (21:20)
[2022-06-09 21:59] VITALS: BP 142/80; PULSE 90; RESP 18; TEMP 99; BMI 24.5
== END 2022-06-09 22:50 | disposition home or self-care (01) ==
LOC: FER 21:16
DX: S05.02XA Injury of conjunctiva and corneal abrasion without foreign body, left eye, initial encounter (principal); W25.XXXA Contact with sharp glass, initial encounter
CPT/HCPCS: 99283-25

== ENCOUNTER 2023-10-27 07:15 | Day surgery (SDC) | payer OTHER ==
[2023-10-26 11:15] VITALS: BMI 26.4
[2023-10-27] MEDS ORDERED: CEFAZOLIN 1 GM in DEXTROSE 5%-WATER - 50 ML IVPB ONE (08:17)
[2023-10-27] MEDS ORDERED: BUPIVACAINE HCL/PF 2.5 MG/ML - 30 ML VIAL IJ ONE (09:04)
[2023-10-27] MEDS ORDERED: MIDAZOLAM HCL 2 MG/2 ML SINGLE DOSE VIAL ONE ×2 (09:35→10:16)
[2023-10-27] MEDS ORDERED: PROPOFOL 20 ML ONE ×8 (09:35→12:23)
[2023-10-27] MEDS ORDERED: EPINEPHrine/PF 1 MG/1 ML (1:1,000) AMPULE ONE (09:37)
[2023-10-27] MEDS ORDERED: DEXAMETHASONE SOD PHOSPHATE/PF 10 MG/ML SDV ONE (10:03)
[2023-10-27] MEDS ORDERED: BUPIVACAINE HCL/PF 0.5% (5 MG/ML) 30 ML VIAL IJ ONE (10:03)
[2023-10-27] MEDS ORDERED: ceFAZolin SODIUM 1 GM VIAL ONE (10:33)
[2023-10-27] MEDS ORDERED: DEXAMETHASONE SOD PHOSPHATE 4 MG/1 ML VIAL ONE (10:41)
[2023-10-27] MEDS ORDERED: ONDANSETRON 4 MG/2 ML VIAL ONE (10:41)
[2023-10-27] MEDS ORDERED: FENTANYL CITRATE/PF 50 MCG/ML VIAL ONE ×2 (12:42→12:53)
[2023-10-27] MEDS ORDERED: oxyCODONE HCL 5 MG TABLET PO PRN (12:43)
[2023-10-27] MEDS ORDERED: ONDANSETRON 4 MG/2 ML VIAL IVPUSH PRN (12:43)
[2023-10-27] MEDS ORDERED: LACTATED RINGERS SOLUTION 1,000 ML IV SCH (12:45)
[2023-10-27 13:55] VITALS: BP 109/73; PULSE 79; RESP 18; TEMP 97.4
== END 2023-10-27 14:00 | disposition home or self-care (01) ==
LOC: FASU 07:15
PROVIDERS: ATTEND Orthopaedic Surgery
PROC: 0LM24ZZ Reattachment of Left Shoulder Tendon, Percutaneous Endoscopic Approach (ICD-10-PCS; principal; 2023-10-27 10:53)
PROC: 0RNK4ZZ Release Left Shoulder Joint, Percutaneous Endoscopic Approach (ICD-10-PCS; 2023-10-27 10:53)
DX: S43.015D Anterior dislocation of left humerus, subsequent encounter (principal); S43.432D Superior glenoid labrum lesion of left shoulder, subsequent encounter; M75.52 Bursitis of left shoulder; M75.22 Bicipital tendinitis, left shoulder; X58.XXXD Exposure to other specified factors, subsequent encounter; Y93.9 Activity, unspecified; Y92.9 Unspecified place or not applicable
CPT/HCPCS: 29806; 29807; 29823; C1713; 84703; 94760